=== PATIENT | male | born 1990 | race Caucasian/White ===

== ENCOUNTER 2016-07-05 15:41 | Emergency (ER) | payer SELFPAY ==
[~2016-07-05] VITALS: Ht 175.3 cm; Wt 73.0 kg
[2016-07-05 15:43] VITALS: BP 137/89; PULSE 124; RESP 18; TEMP 97.9; O2SAT 98
--- NOTE | 2016-07-05 16:27 | PD ---
HPI Chief Complaint: Oral / Dental Pain or Problem Time Seen by Provider: 16:25 Travel History International Travel<30 days: No Contact w/Intl Traveler<30days: No Traveled to known affect area: No History of Present Illness HPI Patient comes in complaining of left lower dental pain that began 2 days ago. Patient states he was eating something when the pain began. Pain is aching throbbing like in nature and radiates through his lower jaw. Pain is worse with eating or smoking. Patient denies anything making it better. Patient denies doing anything for this prior to coming to the emergency department. Denies any fevers or difficulty swallowing. PFSH Past Medical History Diminished Hearing: No Tetanus Vaccination: < 5 Years Social History Alcohol Use: No Tobacco Use: Yes (06/30 PPD ) Substance Use: No Allergies-Medications (Allergen,Severity, Reaction): Coded Allergies: No Known Allergies (Verified , 07/05/16) Reported Meds & Prescriptions Reported Meds & Active Scripts Active Naprosyn (Naproxen) 500 Mg Tab 500 Mg PO Q12HR PRN Clindamycin (Clindamycin HCl) 150 Mg Cap 2 Tab PO Q6H 10 Days Review of Systems Except as stated in HPI: all other systems reviewed are Neg Physical Exam Narrative GENERAL: Well-developed, well nourished, in no acute distress, and non-ill appearing. SKIN: Warm and dry. HEAD: Atraumatic. Normocephalic. EYES: Pupils equal and round. EOMI. No scleral icterus. No injection or drainage. ENT: No nasal bleeding or discharge. Mucous membranes pink and moist. Poor dentition with no visible or palpable abscess. Pain is over tooth #18. Floor the mouth, submandibular, submental are all soft to palpation. NECK: Trachea midline. No cervical lymphadenopathy. Supple. No nuclear rigidity. RESPIRATORY: No accessory muscle use. No respiratory distress. MUSCULOSKELETAL: No obvious deformities. No clubbing. No cyanosis. No edema. Full range of motion. NEUROLOGICAL: Awake and alert. No obvious cranial nerve deficits. Motor grossly within normal limits. Normal speech. PSYCHIATRIC: Appropriate mood and affect; insight and judgment normal. Data Data Last Documented VS Vital Signs Date Time Temp Pulse Resp B/P Pulse Ox O2 Delivery O2 Flow Rate FiO2 07/05/16 15:43 97.9 124 18 137/89 98 Room Air MDM Medical Decision Making Medical Screen Exam Complete: Yes Emergency Medical Condition: Yes Differential Diagnosis Dental abscess, dental infection, dentalgia, other Narrative Course The patient presented with dental pain. There is no fever. There is no significant facial swelling or evidence of cellulitis. There is poor dentition but no evidence of drainable abscess at this time. There is no evidence of significant deep or invading abscess at this time. The patient will be placed on antibiotics and pain medication. The patient was instructed to follow up with a dentist. The patient was given the dental referral sheet. Warnings were discussed with the patient regarding worsening of infection. The patient is to return if pain worsens, develops progressive swelling or facial redness or fever. The patient agrees with plan. Patient in no obvious distress upon re-evaluation. Patient was asked if they wanted to speak to my attending, which the patient did not wish to do at this time. Any questions/concerns in reference to patient diagnosis/condition discussed and clarified prior to patient's discharge. Reinforced sheer importance of close follow up with patient's primary physician or primary care clinic and/or dentist. Instructed patient to return to ED immediately, if symptoms return/worsen. Pt showed understanding of above instructions. Further instructions and recommendations were detailed in discharge paperwork. Pt ambulated without difficulty out of ED at discharge. Diagnosis Primary Impression: Infected dental caries Patient Instructions: Dental Abscess (ED), Dental Caries (ED), General Instructions Additional Instructions: Follow-up with your primary care physician and dentist as soon as possible. Rinse mouth with warm salt water gargles. Take all medication as prescribed. Return to the emergency department if symptoms get worse. Med/Other Pt SpecificInfo: Prescription(s) given Scripts Naproxen (Naprosyn)500 Mg Xly203 Mg PO Q12HR PRN (PAIN SCALE 1 TO 10) #14 TAB Ref 0 Prov:Meg White DO 07/05/16 Clindamycin 150 Mg Cap2 Tab PO Q6H 10 Days Ref 0 Prov:Meg White DO 07/05/16 Disposition: 01 DISCHARGE HOME Condition: Stable Baudilio Toscano Jul 05, 2016 16:27
[2016-07-05] MEDS ORDERED: CLIN1CAP5 PO (16:28)
[2016-07-05] MEDS ORDERED: NAPR500 PO (16:28)
== END 2016-07-05 18:27 | disposition home or self-care (01) ==
LOC: NEPB 15:41
DX: K02.9 Dental caries, unspecified (principal); K04.7 Periapical abscess without sinus; F17.200 Nicotine dependence, unspecified, uncomplicated
CPT/HCPCS: 99282